=== PATIENT | female | born 1960 | race Caucasian/White ===

== ENCOUNTER 2017-08-17 07:04 | Emergency (ER) | payer OTHER, SELFPAY ==
[2017-08-17 07:05] VITALS: BP 126/88; PULSE 70; RESP 18; TEMP 36.6; O2SAT 97; BMI 56.7
--- NOTE | 2017-08-17 07:20 | ED.VISSUMM ---
- ER Visit Summary Date of Service: 08/17/17 Chief Complaint: Bleeding from right leg History of Present Illness: The patient is a [address] Betancourt at [facility] for a melanoma that is stage IV on the posterior right leg. She reports that her last dose of chemo was 6 days ago. In the shower this morning she hit the mass and it broke open and began bleeding. She reports that she has a stabbing pain is 10 out of 10 severity. She denies any paresthesias or weakness. No fever or infectious complaints. Physical Examination: Vitals: Stable. Afebrile. General: Well-nourished and well-developed. Head: Normocephalic atraumatic. Neck: Supple, no lymphadenopathy. No JVD. Nontender. Cardiovascular: Regular rate and rhythm. No murmurs. Respiratory: No respiratory distress. Clear to auscultation bilaterally. Abdominal: Soft, nontender, nondistended, normal bowel sounds. No guarding, rebound, or peritoneal signs. Back: Nontender. Extremities: Nontender, no edema. Skin: Approximately 4 cm mass posterior medial mid right calf. No active bleeding. No surrounding erythema or induration to suggest infection.. Neurologic: Alert and oriented ?3. Cranial nerves II through XII are intact. Normal strength and sensation. Psych: Normal affect. Emergency Department Course and Treatment: Patient refused pain medications. She had her tetanus shot updated. She had a pressure dressing placed. Treatment Plan: Patient will be discharged instructions to leave this dressing in place for the next 24-48 hours. Follow-up with her oncologist in 2 days for a wound check. Return to the emergency department for any worsening symptoms. Disposition: To home in improved and stable condition. Impression: 1. Bleeding from melanoma right leg. This note was generated with [employer] dictation software. It may contain incorrect words, spelling, and punctuation that were not noted in review of the chart prior to signing ED Disposition - Plan for ED Patient: Chief Complaint: Wound Instructions: Wound Care Additional Instructions: Follow-up with your oncologist in 2 days for a wound check.
[2017-08-17] MEDS: Diphth,Pertuss(Acell),Tet Vac 0.5 ML Vial IM (07:38)
== END 2017-08-17 07:46 | disposition home or self-care (01) ==
PROVIDERS: Emergency Provider Emergency Medicine; Family Provider Internal Medicine; PCP Internal Medicine
DX: C43.71 Malignant melanoma of right lower limb, including hip (principal); Z79.899 Other long term (current) drug therapy
CPT/HCPCS: 90715; 99283

== ENCOUNTER 2018-06-08 00:13 | Emergency (ER) | payer OTHER, SELFPAY ==
[2018-06-08 00:14] VITALS: PULSE 110; RESP 26; TEMP 35.7; O2SAT 92; BMI 52.9
--- NOTE | 2018-06-08 00:18 | ED.RN ---
PT PRESENTS WITH AGONAL BREATHING, BAGGED BY EMS. DR. LAGUERRE, RT AND RN AT BEDSIDE.
[2018-06-08 00:19] VITALS: BP 120/76; PULSE 126; RESP 27; O2SAT 94
--- NOTE | 2018-06-08 00:21 | RAD_ITS ---
STUDY: X-RAY CHEST REASON FOR EXAM: Female, 58 years old. Shortness of breath TECHNIQUE: Frontal view COMPARISON: 05/22/2016 FINDINGS: There is suboptimal inspiration. There is mild pulmonary vascular congestion. There are NO acute infiltrates. There is no demonstrated pleural abnormality. Normal size heart. Normal mediastinum and jamie. Normal visualized pulmonary arteries. Normal visualized aortic arch and descending thoracic aorta. Normal visualized thoracic spine. Normal visualized ribs, clavicles, and shoulders. There is no demonstrated abnormality of the visualized soft tissue structures of the upper abdomen. RAD/Chest 1 View IMPRESSION: There is suboptimal inspiration. There is mild pulmonary vascular congestion. There are NO acute infiltrates. There is no demonstrated pleural abnormality. Normal size heart. Electronically Signed: Christiano Pal MD at 0:44 EDT , Service support ,
[2018-06-08 00:23] VITALS: O2SAT 96
--- NOTE | 2018-06-08 00:23 | ED.RN ---
CALLED FOR EKG PER RN REQUEST, PULLED OLD EKGS FOR
--- NOTE | 2018-06-08 00:28 | ED.VISSUMM ---
- ER Visit Summary Date of Service: 06/08/18 Chief Complaint: Unresponsive History of Present Illness: The patient is a 58 F with history of advanced melanoma, currently being treated with Xarelto for a pulmonary embolism, who presents unresponsive. Patient was discharged from the hospital today and while the was trying to get her out of the car at their house, she stated that she was too weak to get out on her own. She then slid down and got wedged between the dashboard in the seat. She was still responsive and talking, and EMS was called for lift assist. While they were assisting her, she suddenly went unresponsive. They noted a brief episode of PEA, but states that the patient had a palpable pulse rate of 80-90. She was not adequately breathing on her own, and thus ventilations were assisted with a BVM. Patient denies any complaints prior to the sudden unresponsiveness. Per the , patient does not want any heroic measures and is DNR. She is currently under palliative care and was being transitioned into hospice. Physical Examination: Patient is unresponsive, actively initiating respirations, tachypneic, no palpable pulse, BMI of 53. Airway is patent. Skin is cool and pale with multiple bruises. Right lower extremity is asymmetrically large and bandaged. Abdomen is obese, no obvious distention. Lung sounds are coarse all panda, left diminished compared to right. Test Results: Medications Given Discontinued Medications Morphine Sulfate () 8 mg IV X1 ONE Stop: 06/08/18 02:04 Last Admin: 06/08/18 02:10 Dose: 8 mg Ondansetron HCl (Zofran) 4 mg IV X1 ONE Stop: 06/08/18 02:04 Last Admin: 06/08/18 02:10 Dose: 4 mg Clinical Impression(s) from Imaging Studies Chest X-Ray 06/08/18 00:21 IMPRESSION: There is suboptimal inspiration. There is mild pulmonary vascular congestion. There are NO acute infiltrates. There is no demonstrated pleural abnormality. Normal size heart. Electronically Signed: Christiano Pal MD at 0:44 EDT , Service support , Emergency Department Course and Treatment: Ventilations continue to be assisted during initial assessment, and patient was 99%. She was initiating spontaneous respirations, and was doing well without assisted ventilations. She was placed on a nonrebreather. Blood pressure measured 120/76 despite being unable to palpate a pulse. Because patient was breathing spontaneously and had a normal blood pressure, it would be highly unlikely for her to be pulseless, thus difficulty in palpating the pulse was deemed likely due to her body habitus. Eventually radial pulse was palpable. Patient was positioned in a semi-goel's position with head of the bed at 30 degrees to help prevent hypoventilation syndrome from the weight of patient's chest. Patient was tachypneic and tachycardic, which was concerning for possible progression of the pulmonary embolism. EKG shows sinus tachycardia without any ischemic changes and unchanged from patient's prior EKGs. Chest x-ray showed no pneumonia, pneumothorax and just mild pulmonary congestion. While workup for patient's sudden unresponsiveness was being initiated, the and a friend did arrive, and the made it very clear that the patient did not want any life-saving interventions and wanted quality of life and comfort care. Patient currently was in palliative care and was in the process of transitioning to hospice care. After confirming this with the and a friend, further workup was halted. Hospice ([facility]) was contacted and sent a nurse to evaluate the patient for admission to inpatient hospice. In the meantime, patient regained responsiveness, color improved, and she was able to speak and answer all questions appropriately. Patient did remain tachypneic and tachycardic, however was normotensive with a good oxygen saturation. She reiterated that she wanted comfort care measures, and we discussed what these were. A DNR comfort care only order was then signed by me and the , due to the patient being too weak to sign it herself. [facility] to [facility] facility. Prior to transfer, patient began having sharp right posterior hip pain. Evaluation showed no soft tissue injury secondary to patient's collapse in the car, and she had full range of motion of the hip without any pain, making fracture or dislocation highly unlikely. Patient was offered an x-ray of the hip to evaluate for any possible bony trauma since EMS did have to manipulate her out of the tight space in the car. Patient and family declined the imaging. Patient was given morphine and Zofran for her new onset of the pain. Patient was discharged into hospice care. Medical care time of 40 minutes for emergent stabilization, initial assessment, coordination of care, frequent re-evaluations, discussions with family and with hospice, and documentation. Treatment Plan: [] Disposition: [] Impression: Acute respiratory failure, unresponsive, metastatic melanoma, known pulmonary emboli, DNR comfort care only, discharged to hospice This note was generated with [employer] dictation software. It may contain incorrect words, spelling, and punctuation that were not noted in review of the chart prior to signing ED Disposition - Plan for ED Patient: Disposition: [facility] Facility Instructions: What Is Hospice? [facility]errals: [facility]] - As soon as possible
--- NOTE | 2018-06-08 00:31 | ED.DCSUM_ITS ---
- ER Visit Summary Date of Service: 06/08/18 Chief Complaint: Unresponsive History of Present Illness: The patient is a 58 F with history of advanced melanoma, currently being treated with Xarelto for a pulmonary embolism, who presents unresponsive. Patient was discharged from the hospital today and while the was trying to get her out of the car at their house, she stated that she was too weak to get out on her own. She then slid down and got wedged between the dashboard in the seat. She was still responsive and talking, and EMS was called for lift assist. While they were assisting her, she suddenly went unresponsive. They noted a brief episode of PEA, but states that the patient had a palpable pulse rate of 80-90. She was not adequately breathing on her own, and thus ventilations were assisted with a BVM. Patient denies any complaints prior to the sudden unresponsiveness. Per the , patient does not want any heroic measures and is DNR. She is currently under palliative care and was being transitioned into hospice. Physical Examination: Patient is unresponsive, actively initiating respirations, tachypneic, no palpable pulse, BMI of 53. Airway is patent. Skin is cool and pale with multiple bruises. Right lower extremity is asymmetrically large and bandaged. Abdomen is obese, no obvious distention. Lung sounds are coarse all panda, left diminished compared to right. Test Results: Medications Given Discontinued Medications Morphine Sulfate () 8 mg IV X1 ONE Stop: 06/08/18 02:04 Last Admin: 06/08/18 02:10 Dose: 8 mg Ondansetron HCl (Zofran) 4 mg IV X1 ONE Stop: 06/08/18 02:04 Last Admin: 06/08/18 02:10 Dose: 4 mg Clinical Impression(s) from Imaging Studies Chest X-Ray 06/08/18 00:21 IMPRESSION: There is suboptimal inspiration. There is mild pulmonary vascular congestion. There are NO acute infiltrates. There is no demonstrated pleural abnormality. Normal size heart. Electronically Signed: Christiano Pal MD at 0:44 EDT , Service support , Emergency Department Course and Treatment: Ventilations continue to be assisted during initial assessment, and patient was 99%. She was initiating spontaneous respirations, and was doing well without assisted ventilations. She was placed on a nonrebreather. Blood pressure measured 120/76 despite being unable to palpate a pulse. Because patient was breathing spontaneously and had a normal blood pressure, it would be highly unlikely for her to be pulseless, thus difficulty in palpating the pulse was deemed likely due to her body habitus. Eventually radial pulse was palpable. Patient was positioned in a semi-goel's position with head of the bed at 30 degrees to help prevent hypoventilation syndrome from the weight of patient's chest. Patient was tachypneic and tachycardic, which was concerning for possible progression of the pulmonary em bolism. EKG shows sinus tachycardia without any ischemic changes and unchanged from patient's prior EKGs. Chest x-ray showed no pneumonia, pneumothorax and just mild pulmonary congestion. While workup for patient's sudden unresponsiveness was being initiated, the and a friend did arrive, and the made it very clear that the patient did not want any life-saving interventions and wanted quality of life and comfort care. Patient currently was in palliative care and was in the process of transitioning to hospice care. After confirming this with the and a friend, further workup was halted. Hospice ([facility]) was contacted and sent a nurse to evaluate the patient for admission to inpatient hospice. In the meantime, patient regained responsiveness, color improved, and she was able to speak and answer all questions appropriately. Patient did remain tachypneic and tachycardic, however was normotensive with a good oxygen saturation. She reiterated that she wanted comfort care measures, and we discussed what these were. A DNR comfort care only order was then signed by me and the , due to the patient being too weak to sign it herself. Patient was accepted to [facility] inpatient facility. Prior to transfer, patient began having sharp right posterior hip pain. Evaluation showed no soft tissue injury secondary to patient's collapse in the car, and she had full range of motion of the hip without any pain, making fracture or dislocation highly unlikely. Patient was offered an x-ray of the hip to evaluate for any possible bony trauma since EMS did have to manipulate her out of the tight space in the car. Patient and family declined the imaging. Patient was given morphine and Zofran for her new onset of the pain. Patient was discharged into hospice care. Medical care time of 40 minutes for emergent stabilization, initial assessment, coordination of care, frequent re-evaluations, discussions with family and with hospice, and documentation. Treatment Plan: [] Disposition: [] Impression: Acute respiratory failure, unresponsive, metastatic melanoma, known pulmonary emboli, DNR comfort care only, discharged to hospice This note was generated with [employer] dictation software. It may contain incorrect words, spelling, and punctuation that were not noted in review of the chart prior to signing ED Disposition - Plan for ED Patient: Disposition: [facility]-Way Facility Instructions: What Is Hospice? Referrals: [facility]] - As soon as possible
--- NOTE | 2018-06-08 00:32 | ED.RN ---
LARGE WOUND ON RIGHT LOWER LEG, BANDAGED, WEEPING, UNABLE TO ACCESS. PT WITH METASTATIC CA.
[2018-06-08 00:43] VITALS: BP 141/85; PULSE 112; RESP 30; O2SAT 96
--- NOTE | 2018-06-08 00:44 | ED.RN ---
NASAL TRUMPET REMOVED. [facility] ON [address].
[2018-06-08 00:55] VITALS: O2SAT 98
--- NOTE | 2018-06-08 01:19 | EKG12_ITS ---
Test Reason : Blood Pressure : / mmHG Vent. Rate : 114 BPM Atrial Rate : 114 BPM P-R Int : 190 ms QRS Dur : 098 ms QT Int : 318 ms P-R-T Axes : 060 -29 021 degrees QTc Int : 438 ms Sinus tachycardia Left ventricular hypertrophy with repolarization abnormality Possible Lateral infarct , age undetermined Possible Inferior infarct , age undetermined Abnormal ECG Confirmed by RINA SUERO, MADISON ([id number]), art editor MARINO BLAIR ([id number]) on 06/14/2018 4:05:35 PM Referred By: SHADE Confirmed By:MADISON FLYNN MD
[2018-06-08 02:10] VITALS: BP 111/80; PULSE 104; RESP 18; O2SAT 97
[2018-06-08] MEDS: morphine 8 MG/ML Syringe IV (02:10)
[2018-06-08] MEDS: Ondansetron 4 MG/2 ML Vial IV (02:10)
== END 2018-06-08 02:11 | disposition hospice, inpatient (51) ==
PROVIDERS: Emergency Provider Emergency Medicine; Family Provider Internal Medicine; PCP Internal Medicine
DX: J96.00 Acute respiratory failure, unspecified whether with hypoxia or hypercapnia (principal); Z66 Do not resuscitate; C43.9 Malignant melanoma of skin, unspecified; C79.9 Secondary malignant neoplasm of unspecified site; I26.99 Other pulmonary embolism without acute cor pulmonale; I46.9 Cardiac arrest, cause unspecified; M25.551 Pain in right hip; Z79.01 Long term (current) use of anticoagulants; Z79.899 Other long term (current) drug therapy
CPT/HCPCS: 71045; 93005; 96374; 96375; 99285; J7030; A4216; J2405